=== PATIENT | male | born 1960 | race Caucasian/White ===

== ENCOUNTER 2018-06-09 06:51 | Outpatient (CLI) | payer OTHER ==
[~2018-06-09] VITALS: Ht 167.6 cm; Wt 81.8 kg
[2018-06-09 07:31] LABS: ALBUMIN 3.5 g/dL (3.4-5.0); ALKALINE PHOSPHATASE 158 U/L (46-116); ALT (SGPT) 20 U/L (10-68); BASOPHILS 0.5 % (0-2); BILIRUBIN - TOTAL 0.48 mg/dL (0.2-1.3); CALC OSMOLALITY 283 mosm/kg (275-300); CARBON DIOXIDE 29.7 mmol/L (21.0-32.0); CHLORIDE - SERUM 105 mmol/L (98-107); CREATININE - SERUM 0.9 mg/dL (0.6-1.3); EOSINOPHILS 4.2 % (0-7); GLUCOSE 104 mg/dL (74-106); HEMOGLOBIN 12.5 g/dL (13.5-17.5); IMMATURE GRANULOCYTES 0.2 % (0-5); LYMPHOCYTES 22.2 % (15-50); MCH 32.5 pg (26.0-34.0); MCHC 33.8 g/dL (31.0-37.0); MCV 96.1 fL (80.0-100.0); MEAN PLATELET VOLUME 9.4 fL (7.4-10.4); NEUTROPHILS 59.9 % (40-80); PLATELET COUNT 127 10x3/uL (130-400); POTASSIUM - SERUM 4.4 mmol/L (3.5-5.1); PROTEIN - SERUM 8.8 g/dL (6.4-8.2); RBC 3.85 10x6/uL (4.20-6.10); RDW 14.2 % (11.5-14.5); SODIUM 142 mmol/L (136-145); UREA NITROGEN 14 mg/dL (7-18); WBC 4.1 10x3/uL (4.8-10.8); eGFR NON AFRICAN AMERICAN > 90 mL/min (90-120)
[2018-06-09 07:37] LABS: APTT 34.2 SECONDS (22.8-39.4); INR 1.31 (0.85-1.17); PROTIME 15.8 SECONDS (11.6-15.0)
[2018-06-09 08:15] VITALS: BP 106/59; Ht 167.6 cm; Wt 81.8 kg
[2018-06-09] MEDS ORDERED: NEURONTIN 300300 MG PO (08:26)
[2018-06-09] MEDS ORDERED: BAYER CHEWABLE81 MG PO (08:26)
[2018-06-09] MEDS ORDERED: OMEPRAZOLE20 M1 PO (08:27)
[2018-06-09] MEDS ORDERED: LIPITOR20 MG PO (08:27)
[2018-06-09] MEDS ORDERED: GLUCOPHAGE500 MG PO (08:28)
[2018-06-09] MEDS ORDERED: BUPROPION HCL75 MG PO (08:28)
[2018-06-09] MEDS ORDERED: PROPRANOLOL PO (08:30)
[2018-06-09] MEDS ORDERED: TRAZODONE HCL150 MG PO (08:32)
[2018-06-09] MEDS ORDERED: MYSOLINE 50 MG50 MG PO (08:33)
[2018-06-09 10:42] LABS: PROTEIN - BODY FLUID 3.3 G/DL
--- NOTE | 2018-06-09 11:23 | NUR ---
1120 PORTABLE CHEST XRAY DONE. Marcus HAYNES R.N.
[2018-06-09 11:28] LABS: MACROPHAGES BF 12 %; NEUT - BF 2 %
--- NOTE | 2018-06-09 14:42 | NUR ---
1305 DRESSED. AWAKE & ALERT. GIVEN DISCHARGE INFORMATION INCLUDING: MED REC, [facility] OUTPATIENT D/C INSTRUCTIONS. D/C INSTRUCTIONS FOR CT GUIDED BIOPSY/PROCEDURE, & THORACENTESIS DISCHARGE INSTRUCTIONS. PT VOICED UNDERSTANDING. TO PRIVATE CAR PER WHEELCHAIR BY VOLUNTEER. HOME WITH . Marcus HAYNES R.N.
[2018-06-10 13:19] LABS: FUNGUS STAIN Final report (())
[2018-06-10 19:11] LABS: ACID FAST SMEAR Negative (()); AFB SPECIMEN PROCESSING Not Indicated (())
== END 2018-06-09 13:05 | disposition home or self-care (01) ==
LOC: D.SP 06:51 → D.CT 08:00 → D.SP 09:00 → D.CT 09:00 → D.SP 13:05
PROVIDERS: Radiology Diagnostic Radiology; ATTEND Internal Medicine Pulmonary Disease
DX: J90 Pleural effusion, not elsewhere classified (principal); Z01.812 Encounter for preprocedural laboratory examination

== ENCOUNTER → 2018-06-19 09:41 | Outpatient (CLI) | payer OTHER ==
[2018-06-09 08:15] VITALS: BMI 29.1
[~2018-06-19 09:41] MED LIST: BAYER CHEWABLE81 MG PO; BUPROPION HCL75 MG PO; GLUCOPHAGE500 MG PO; LIPITOR20 MG PO; MYSOLINE 50 MG50 MG PO; NEURONTIN 300300 MG PO; OMEPRAZOLE20 M1 PO; PROPRANOLOL PO; TRAZODONE HCL150 MG PO
== END | disposition home or self-care (01) ==
LOC: D.ECHO 09:41
PROVIDERS: ATTEND Internal Medicine Cardiovascular Disease
DX: J96.11 Chronic respiratory failure with hypoxia (principal)

== ENCOUNTER → 2018-09-14 09:46 | Outpatient (CLI) | payer OTHER ==
[2018-06-09 08:15] VITALS: BMI 29.1
== END | disposition home or self-care (01) ==
LOC: D.CT 09:46
PROVIDERS: ATTEND Internal Medicine Pulmonary Disease
DX: J90 Pleural effusion, not elsewhere classified (principal)